=== PATIENT | male | born 1960 | race Caucasian/White ===

== ENCOUNTER 2017-05-23 09:37 | Emergency (ER) | payer BC ==
--- NOTE | 2017-05-23 10:07 | Emergency Department Record ---
History of Present Illness - General Chief Complaint: Abdominal Pain Stated Complaint: abd pain Time Seen by Provider: 05/23/17 10:04 Source: Patient Mode of Arrival: Ambulatory Limitations: No limitations - History of Present Illness Initial Comments: 57 yo male presents with left sided abdominal pain. He was seen in the and referred to the ED for further evaluation. The pain started last across the lower abdomen with some discomfort in the back. The pain now is mostly in the front across the abdomen. He has some nausea. He had a fever of 101 over the weekend. No bloody stools. No history of abdominal surgery. He had a colonoscopy 4 years ago and he states he had polyps. Pain and nausea are controlled at this time. MD Complaint: Abdominal pain Onset/Timin -: Days(s) Location: LLQ, RLQ, Other Radiation: Back Severity: Mild Quality: Aching Consistency: Constant Improves With: Nothing Worsens With: Movement Associated Symptoms: Fever - Related Data Previous Rx's Medication Instructions Recorded Ciprofloxacin HCl [Cipro] 500 mg PO Q12HR #14 tablet 05/23/17 Metronidazole [Flagyl] 500 mg PO BID #14 tablet 05/23/17 Allergies Allergy/AdvReac Type Severity Reaction Status Date / Time No Known Allergies Allergy no Verified 05/23/17 10:36 allergies Travel Screening - Travel/Exposure Within Last 30 Days Have you traveled within the last 30 days?: No Review of Systems Constitutional: Reports: Fever. Denies: Chills, Malaise, Weakness Eyes: Denies: Eye discharge ENT: Denies: Congestion, Throat pain Respiratory: Denies: Cough, Dyspnea, Hemoptysis, Stridor, Wheezes Cardiovascular: Denies: Chest pain, Syncope Endocrine: Denies: Fatigue Gastrointestinal: Reports: Abdominal pain, Nausea, Vomiting. Denies: Diarrhea, Hematemesis, Hematochezia Genitourinary: Denies: Dysuria, Frequency Musculoskeletal: Denies: Arthralgia, Back pain, Neck pain Skin: Denies: Bruising, Change in color, Rash Neurological: Denies: Headache, Numbness, Weakness Psychiatric: Denies: Anxiety Hematological/Lymphatic: Denies: Easy bleeding, Easy bruising Past Medical History - SOCIAL HISTORY Smoking Status: Former smoker Alcohol Use: Occasional Drug Use: None - RESPIRATORY Hx Respiratory Disorders: No - CARDIOVASCULAR Hx Cardio Disorders: No - NEURO Hx Neuro Disorders: No - GI Hx GI Disorders: No - Hx Genitourinary Disorders: No - ENDOCRINE Hx Endocrine Disorders: No - MUSCULOSKELETAL Hx Musculoskeletal Disorders: No - PSYCH Hx Psych Problems: No - HEMATOLOGY/ONCOLOGY Hx Hematology/Oncology Disorders: No Family Medical History Any Significant Family History?: No Physical Exam - General General Appearance: Alert, Oriented x3, Cooperative, No acute distress - Head Head exam: Normal inspection - Eye Eye exam: Normal appearance, PERRL - ENT ENT exam: Normal exam Ear exam: Normal external inspection Nasal Exam: Normal inspection Mouth exam: Normal external inspection - Neck Neck exam: Normal inspection, Full ROM. negative: Tenderness - Respiratory Respiratory exam: Normal lung sounds bilaterally. negative: Respiratory distress - Cardiovascular Cardiovascular Exam: Regular rate, Normal rhythm, Normal heart sounds - GI/Abdominal GI/Abdominal exam: Soft, Tenderness (Tender LLQ, soft). negative: Normal bowel sounds, Distended, Guarding, Rebound - Rectal Rectal exam: Deferred - exam: Deferred - Extremities Extremities exam: Normal inspection, Full ROM, Normal capillary refill. negative: Tenderness - Back Back exam: Reports: Normal inspection, Full ROM. Denies: Muscle spasm, Rash noted, Tenderness - Neurological Neurological exam: Alert, Normal gait, Oriented X3 - Psychiatric Psychiatric exam: Normal affect, Normal mood - Skin Skin exam: Dry, Intact, Normal color, Warm Course Vital Signs 05/23/17 09:56 Temperature 98.7 F Pulse Rate 93 H Respiratory 18 Rate Blood Pressure 95/76 Pulse Ox 97 - Reevaluation(s) Reevaluation #1: Labs, CT ordered. 05/23/17 10:34 Reevaluation #2: The labs were reviewed No acute changes on the CBC or Lipase The TBili was 2.1 with DBili at 0.0 No other acute changes on the CMP 05/23/17 11:15 Reevaluation #3: CT is consistent with upper sigmoid diverticulitis, no free air or abscess The patient is afebrile, not dehydrated, tolerating PO He is a good outpatient candidate for PO treatment as he does not have fever, current vomiting, the pain is well controlled. 05/23/17 12:58 Medical Decision Making - Lab Data Result diagrams: 05/23/17 10:10 05/23/17 10:10 Disposition Disposition: Discharge Clinical Impression: Diverticulitis Qualifiers: Diverticulitis site: large intestine Diverticulitis bleeding: without bleeding Diverticulitis complication: without perforation or abscess Qualified Code(s): K57.32 - Diverticulitis of large intestine without perforation or abscess without bleeding Disposition: Home, Self-Care Condition: (1) Good Instructions: Diverticulitis (ED) Additional Instructions: Immediately return to the ER if you have increasing or uncontrolled pain, any fever or vomiting Rest and stay well hydrated Avoid heavy or fatty foods Mainly eat a soft or liquid diet the next 2-3 days Return in the Clinic in the next one week Tylenol for mild pain Prescriptions: Ciprofloxacin HCl [Cipro] 500 mg PO Q12HR #14 tablet Metronidazole [Flagyl] 500 mg PO BID #14 tablet Forms: Patient Portal Access Time of Disposition: 13:08 Quality - Quality Measures Quality Measures: N/A - Blood Pressure Screening View Details: Yes Blood Pressure Classification: Normal BP Reading Systolic Measurement: 95 Diastolic Measurement: 76 Screening for High Blood Pressure: < Normal BP, F/U Not Required > [G8783] Normal BP Follow-up Interventions: No follow-up required
[2017-05-23 10:25] LABS: BASO % 0.2 % (0-6); EOS % 1.8 % (0-6); GRAN % 75.5 % (47-80); HEMATOCRIT 44.1 % (42.0-52.0); HEMOGLOBIN 14.6 gm/dl (14.0-18.0); LYMPH % 12.9 % (16-45); MEAN CELL VOLUME 91.1 fl (81-97); MEAN CORPUSCULAR HEMOGLOBIN 30.2 pg (27-33); MEAN CORPUSCULAR HGB CONC 33.1 g/dl (32-36); MEAN PLATELET VOLUME 10.8 fl (7.4-10.4); MONO % 9.6 % (0-9); PLATELET COUNT 223 K/uL (130-400); RED BLOOD COUNT 4.84 M/uL (4.40-5.70); RED CELL DISTRIBUTION WIDTH 14.3 % (11.5-14.5); WHITE BLOOD COUNT W/O DIFF 10.2 K/uL (4.2-12.2)
[2017-05-23] MEDS: 0.9 % SODIUM CHLORIDE 1,000 ML BAG IV ONE (10:35)
[2017-05-23 10:36] LABS: URINE APPEARANCE CLEAR; URINE BILIRUBIN NEGATIVE (NEGATIVE); URINE BLOOD NEGATIVE (NEGATIVE); URINE COLOR ORANGE; URINE GLUCOSE (UA) NEGATIVE (NEGATIVE); URINE KETONE NEGATIVE (NEGATIVE); URINE LEUKOCYTE ESTERASE NEGATIVE (NEGATIVE); URINE NITRITE NEGATIVE (NEGATIVE); URINE PROTEIN TRACE (NEGATIVE); URINE UROBILINOGEN 0.2 E.U./dL (0.20 - 1.00)
[2017-05-23 10:43] LABS: ALBUMIN 4.5 gm/dL (3.5-5.0); ALKALINE PHOSPHATASE 103 U/L (38-126); ALT/SGPT 68 U/L (21-72); ANION GAP 9.2 (7-16); AST/SGOT 55 U/L (17-59); BILIRUBIN,TOTAL 2.13 mg/dL (0.2-1.3); BLOOD UREA NITROGEN 13 mg/dL (9-20); CARBON DIOXIDE 26.8 mmol/L (22-30); CREATININE 1.2 mg/dL (0.66-1.25); EST GLOMERULAR FILTRATION RATE > 60 ml/min; GLUCOSE,RANDOM 105 mg/dL (70-110); LIPASE 17 U/L (23-300); TOTAL PROTEIN 8.1 gm/dL (6.3-8.2)
[2017-05-23] MEDS: METRONIDAZOLE 250 MG TABLET PO ONE (13:12)
[2017-05-23] MEDS: CIPROFLOXACIN HCL 500 MG TABLET PO ONE (13:12)
--- NOTE | 2017-05-24 20:41 | CT SCAN REPORT ---
EXAM: CT SCAN ABDOMEN/PELVIS W CONTRAST HISTORY: LEFT-SIDED ABDOMINAL PAIN AND FEVER. TECHNIQUE: AXIAL CT SCAN OF THE ABDOMEN AND PELVIS PERFORMED FOLLOWING BOTH ORAL AND IV CONTRAST MEDIA ADMINISTRATION UTILIZING A DOSE OF 100 ML OF OMNIPAQUE-300 THE IV CONTRAST. COMPARISON: NONE. FINDINGS: No calcified gallstones are seen within the gallbladder. Mild diffuse fatty infiltration of the liver with no focal hepatic mass evident. Small hiatal hernia. No definite splenic, adrenal, pancreatic, or renal mass identified. Right inguinal hernia containing adipose tissue but no bowel. Oral contrast given has passed throughout the bowel to the rectum with no bowel obstruction evident. There is some thickening of the wall of the sigmoid colon with adjacent hazy inflammatory-type changes. There is probably at least one diverticulum in this region and this likely represents acute changes of upper sigmoid diverticulitis. The appendix is visualized and appears negative with no appendicitis evident. No free intraperitoneal air or free intraperitoneal fluid evident. Very small periumbilical anterior abdominal wall hernia containing adipose tissue but no bowel. Mild thoracolumbar curve convexed to the right. IMPRESSION: 1. FINDINGS INVOLVING THE REGION OF THE UPPER SIGMOID COLON CONSISTENT WITH ACUTE SIGMOID DIVERTICULITIS. 2. MILD DIFFUSE FATTY INFILTRATION OF THE LIVER. 3. SMALL PERIUMBILICAL ANTERIOR ABDOMINAL WALL HERNIA CONTAINING ADIPOSE TISSUE AND A RIGHT INGUINAL HERNIA CONTAINING ADIPOSE TISSUE BUT NO BOWEL. 4. SMALL HIATAL HERNIA. JOB NUMBER: [id number] [facility]
== END 2017-05-23 13:25 | disposition home or self-care (01) ==
LOC: ER 09:37
DX: K57.32 Diverticulitis of large intestine without perforation or abscess without bleeding (principal)
CPT/HCPCS: 74177; 80048; 80076; 81003; 83690; 85025; 99284; J7030

== ENCOUNTER 2019-09-15 08:34 | Emergency (ER) | payer BC ==
[2019-09-15 08:51] LABS: URINE APPEARANCE CLEAR; URINE BILIRUBIN NEGATIVE (NEGATIVE); URINE BLOOD NEGATIVE (NEGATIVE); URINE COLOR YELLOW; URINE GLUCOSE (UA) NEGATIVE (NEGATIVE); URINE KETONE NEGATIVE (NEGATIVE); URINE LEUKOCYTE ESTERASE NEGATIVE (NEGATIVE); URINE NITRITE NEGATIVE (NEGATIVE); URINE PROTEIN NEGATIVE (NEGATIVE); URINE UROBILINOGEN 0.2 E.U./dL (0.20 - 1.00)
--- NOTE | 2019-09-15 09:02 | Emergency Department Record ---
History of Present Illness - General Chief Complaint: Abdominal Pain Stated Complaint: LOWER ABDOMINAL PAIN Time Seen by Provider: 09/15/19 08:43 Source: Patient Mode of Arrival: Ambulatory Limitations: No limitations - History of Present Illness Initial Comments: pt c/o llq ap similar to what he had when he had diverticulitis. no n/v/c/d. he has had the pain for 4 days MD Complaint: Abdominal pain Onset/Timin -: Days(s) Location: Suprapubic Radiation: Back Severity: Moderate Quality: Cramping Consistency: Intermittent Improves With: Nothing Worsens With: Nothing - Related Data Home Medications Medication Instructions Recorded Confirmed Last Taken No Home Med [NO HOME MEDS] 09/15/19 09/15/19 Unknown Allergies Allergy/AdvReac Type Severity Reaction Status Date / Time No Known Allergies Allergy no Unverified 09/15/19 08:44 allergies Travel Screening - Travel/Exposure Within Last 30 Days Have you traveled within the last 30 days?: No Review of Systems Reviewed: No additional complaints except as noted below Constitutional: Reports: As per HPI. Denies: Chills, Fever, Malaise, Night sweats, Weakness, Weight change Eyes: Reports: As per HPI. Denies: Eye discharge, Eye pain, Photophobia, Vision change ENT: Reports: As per HPI. Denies: Congestion, Dental pain, Ear pain, Epistaxis, Hearing loss, Throat pain Respiratory: Reports: As per HPI. Denies: Cough, Dyspnea, Hemoptysis, Stridor, Wheezes Cardiovascular: Reports: As per HPI. Denies: Arrhythmia, Chest pain, Dyspnea on exertion, Edema, Murmurs, Orthopnea, Palpitations, Paroxysmal nocturnal dyspnea, Rheumatic Fever, Syncope Endocrine: Reports: As per HPI. Denies: Fatigue, Heat or cold intolerance, Polydipsia, Polyuria Gastrointestinal: Reports: As per HPI. Denies: Abdominal pain, Constipation, Diarrhea, Hematemesis, Hematochezia, Melena, Nausea, Vomiting Genitourinary: Reports: As per HPI. Denies: Dysuria, Frequency, Hematuria, Incontinence, Retention, Testicular pain, Testicular mass, Urgency Musculoskeletal: Reports: As per HPI. Denies: Arthralgia, Back pain, Gout, Joint swelling, Myalgia, Neck pain Skin: Reports: As per HPI. Denies: Bruising, Change in color, Change in hair/nails, Lesions, Pruritus, Rash Neurological: Reports: As per HPI. Denies: Abnormal gait, Confusion, Headache, Numbness, Paresthesias, Seizure, Tingling, Tremors, Vertigo, Weakness Psychiatric: Reports: As per HPI. Denies: Anxiety, Auditory hallucinations, Depression, Homicidal thoughts, Suicidal thoughts, Visual hallucinations Hematological/Lymphatic: Reports: As per HPI. Denies: Anemia, Blood Clots, Easy bleeding, Easy bruising, Swollen glands Past Medical History - SOCIAL HISTORY Smoking Status: Former smoker Alcohol Use: None Drug Use: None - RESPIRATORY Hx Respiratory Disorders: No - CARDIOVASCULAR Hx Cardio Disorders: No - NEURO Hx Neuro Disorders: No - GI Hx GI Disorders: Yes Hx Diverticulitis: Yes - Hx Genitourinary Disorders: No - ENDOCRINE Hx Endocrine Disorders: No - MUSCULOSKELETAL Hx Musculoskeletal Disorders: No - PSYCH Hx Psych Problems: No - HEMATOLOGY/ONCOLOGY Hx Hematology/Oncology Disorders: No Family Medical History Any Significant Family History?: No Physical Exam - General General Appearance: Alert, Oriented x3, Cooperative, Mild distress - Head Head exam: Normal inspection - Eye Eye exam: Normal appearance, PERRL, EOMI Pupils: Normal accommodation - ENT ENT exam: Normal exam, Mucous membranes moist, Normal external ear exam, Normal orophraynx Ear exam: Normal external inspection. negative: External canal tenderness Nasal Exam: Normal inspection. negative: Discharge, Sinus tenderness Mouth exam: Normal external inspection, Tongue normal Teeth exam: Normal inspection. negative: Dental caries Throat exam: Normal inspection. negative: Tonsillar erythema, Tonsillar exudate - Neck Neck exam: Normal inspection, Full ROM. negative: Tenderness - Respiratory Respiratory exam: Normal lung sounds bilaterally. negative: Respiratory distress - Cardiovascular Cardiovascular Exam: Regular rate, Normal rhythm, Normal heart sounds - GI/Abdominal GI/Abdominal exam: Soft, Normal bowel sounds, Tenderness (llq) - Rectal Rectal exam: Deferred - exam: Deferred - Extremities Extremities exam: Normal inspection, Full ROM, Normal capillary refill. negative: Tenderness - Back Back exam: Reports: Normal inspection, Full ROM. Denies: Muscle spasm, Rash noted, Tenderness - Neurological Neurological exam: Alert, CN II-XII intact, Normal gait, Oriented X3, Reflexes normal - Psychiatric Psychiatric exam: Normal affect, Normal mood - Skin Skin exam: Dry, Intact, Normal color, Warm Course Vital Signs 09/15/19 08:41 Temperature 98.1 F Pulse Rate 93 H Respiratory 18 Rate Blood Pressure 149/88 Pulse Ox 99 - Reevaluation(s) Reevaluation #1: 09/15/19 10:56 d/w dr casiano and dr edwards, radiology. possible small bleed Medical Decision Making - Lab Data Result diagrams: 09/15/19 08:57 09/15/19 08:57 Lab Results 09/15/19 Range/Units 08:51 Urine Color Yellow Urine Appearance Clear Urine pH 6.5 (5.0-8.0) Ur Specific [place] <= 1.005 (1.002-1.030) Urine Protein Negative (NEGATIVE) Urine Glucose (UA) Negative (NEGATIVE) Urine Ketones Negative (NEGATIVE) Urine Blood Negative (NEGATIVE) Urine Nitrite Negative (NEGATIVE) Urine Bilirubin Negative (NEGATIVE) Urine Urobilinogen 0.2 (0.20 - 1.00) E.U./dL Ur Leukocyte Esterase Negative (NEGATIVE) Disposition Disposition: Transfer Clinical Impression: Diverticulitis of colon with hemorrhage Disposition: Acute Care Hospital Transfer Transfer To: [facility] Reason For Transfer: needs surgeon Accepting Physician: dr casiano Time Discussed w/Accepting Physician: 10:56 Forms: Patient Portal Access Quality - Quality Measures Quality Measures: N/A - Blood Pressure Screening Does Patient Have Any of the Following: No Blood Pressure Classification: Pre-Hypertensive BP Reading Systolic Measurement: 149 Diastolic Measurement: 88 Screening for High Blood Pressure: < Pre-Hypertensive BP, F/U Documented > [ G8950] Pre-Hypertensive Follow-up Interventions: Follow-up with rescreen every year.
[2019-09-15 09:06] LABS: ABSOLUTE NEUTROPHIL COUNT 7.54; BASO % 0.1 % (0-6); EOS % 1.4 % (0-6); HEMATOCRIT 45.1 % (42.0-52.0); LYMPH % 13.2 % (16-45); MEAN CELL VOLUME 91.3 fl (81-97); MEAN CORPUSCULAR HEMOGLOBIN 30.4 pg (27-33); MEAN CORPUSCULAR HGB CONC 33.3 g/dl (32-36); MEAN PLATELET VOLUME 10.5 fl (7.4-10.4); MONO % 11.3 % (0-9); PLATELET COUNT 202 K/uL (130-400); RED BLOOD COUNT 4.94 M/uL (4.40-5.70); RED CELL DISTRIBUTION WIDTH 14.7 % (11.5-14.5); WHITE BLOOD COUNT W/O DIFF 10.2 K/uL (4.2-12.2)
[2019-09-15 09:15] LABS: BLOOD UREA NITROGEN 15 mg/dL (6-20); EST GLOMERULAR FILTRATION RATE > 60 mL/min
[2019-09-15 09:18] LABS: GLUCOSE,RANDOM 109 mg/dL (74-109)
--- NOTE | 2019-09-15 10:08 | CT SCAN REPORT ---
EXAMINATION: CT Abdomen and Pelvis without IV Contrast EXAM DATE: 09/15/2019 9:22 AM TECHNIQUE: Standard protocol CT imaging of the abdomen and pelvis was performed without intravenous c ontrast. INDICATION: llq ap COMPARISON: 05/23/2017 ENCOUNTER: Not applicable CT ABDOMEN AND PELVIS FINDINGS: Lung Bases: There is a 3 mm noncalcified pulmonary nodule in the right middle lobe. This was likely i ncompletely visualized on the previous examination from 05/23/2017. Hepatobiliary: The liver has a normal size with a smooth surface. Pancreas: The pancreas is normal. Spleen: The spleen is not enlarged. Adrenals: The adrenal glands are normal. Kidneys, Ureters, & Bladder: Both kidneys have a normal size and morphology. There is no hydronephro sis. Both ureters have a normal course and caliber and the urinary bladder a normal morphology and un iform wall thickness. No ureteral or bladder calculi are identified. Gastrointestinal: The stomach and small bowel are normal with no obstruction or inflammation. The leticia endix is normal. Scattered diverticula are present. There is a focal area of fat stranding at the desmond ction of the distal descending and sigmoid colon corresponding to diverticulitis in the same location as on the examination from 05/23/2017. Although there are high density material within the diverticul a in the region, there is one focus of hyperdensity, lower density than calcifications, which may rep resent questionable blush of hemorrhage (2, 157). There is no evidence of bowel perforation or adjace nt fluid collection identified. Reproductive Organs: Unremarkable Lymphatic System: There is no adenopathy within the abdomen or pelvis. Vasculature: Normal caliber abdominal aorta Peritoneum: No free fluid or free air is seen. Abdominal wall & Musculoskeletal: There is a fat-containing right inguinal hernia present. Dextroconv exity of the lumbar spine is seen. Assessment of the solid organs, soft tissues, and vascular structures is overall limited on noncontra st imaging, IMPRESSION: 1. Evidence of acute diverticulitis at the junction of the descending colon and sigmoid colon in a si milar location as in 2017. There is a focus of hyperdensity which could represent high density materi al within a diverticulum but an active area of hemorrhage is not excluded. No evidence of perforation or fluid collection is seen. Please correlate with the patient's hemodynamic status and consider CT angiography or intervention as clinically indicated. 2. Noncalcified nodule in the right middle lobe most likely benign as it is similar in appearance to 2017. A Red Critical Result was communicated to Dr. Correa at 09/15/2019 10:00 AM. Dictated by: Briana Rodriguez DO on 09/15/2019 9:30 AM. .
[2019-09-15] MEDS ORDERED: CIPROFLOXACIN LACTATE/D5W 400 MG/200 ML BAG IVPB ONE (10:53)
[2019-09-15] MEDS ORDERED: METRONIDAZOLE IVPB 500 MG/100 ML BAG IVPB ONE (10:54)
== END 2019-09-15 11:10 | disposition short-term general hospital (02) ==
LOC: ER 08:34
DX: K57.33 Diverticulitis of large intestine without perforation or abscess with bleeding (principal); R11.0 Nausea; R19.7 Diarrhea, unspecified; R35.0 Frequency of micturition
CPT/HCPCS: 99285 ×2; 96374; 85025; 80048; 81003; 74176; J0744

== ENCOUNTER 2019-11-01 13:07 | Day surgery (SDC) | payer BC ==
[2019-11-01] MEDS ORDERED: PROPOFOL 10 MG/ML VIAL IV ONE (13:08)
[2019-11-01] MEDS ORDERED: LIDOCAINE 2% MDV (20MG/ML) 20ML VIAL IV ONE (13:08)
--- NOTE | 2019-11-05 07:20 | Operative Note ---
OPERATION: COLONOSCOPY with cold snare polypectomy x3. PREOPERATIVE DIAGNOSIS: Diverticulitis. POSTOPERATIVE DIAGNOSES: 1. Mild sigmoid diverticulosis. 2. Colon polyps. SPECIMENS: Ascending colon polyp, descending colon polyp, sigmoid polyp. COMPLICATIONS: None apparent. PREPARATION QUALITY: Excellent. PROCEDURE: After informed consent was obtained from the patient, he was placed in the left lateral decubitus position in the endoscopy suite, sedated and monitored by the department of anesthesia. Digital rectal exam was unremarkable. A well-lubricated [id number] colonoscope was inserted into the rectum and advanced to the cecum. The cecum and cecal bulb were unremarkable. The ascending colon revealed a 5 mm sessile polyp removed with a cold snare and retrieved. The remainder of the ascend colon and transverse colon were unremarkable. There was a 4 mm descending colon sessile polyp removed with a cold snare and retrieved. The sigmoid colon demonstrated somewhat pedunculated 6 mm polyp removed with a cold snare and retrieved. There were a few scattered sigmoid diverticula but this was mild. The rectum was unremarkable in forward and J-turn views. The endoscope was straightened, the rectal ampulla deflated, and the endoscope was removed. RECOMMENDATIONS: The patient should follow a high-fiber diet. He will require repeat exam in 3-5 years for continued surveillance with a final determination based on tissue histology. As always, thank you for allowing me to participate in the healthcare of your patients. [email or web address]
== END 2019-11-01 15:03 | disposition home or self-care (01) ==
LOC: HOP 13:07
PROVIDERS: ATTEND Internal Medicine Gastroenterology
DX: K57.30 Diverticulosis of large intestine without perforation or abscess without bleeding (principal); Z86.010 Personal history of colon polyps; F17.210 Nicotine dependence, cigarettes, uncomplicated; D12.2 Benign neoplasm of ascending colon; D12.4 Benign neoplasm of descending colon; D12.5 Benign neoplasm of sigmoid colon